=== PATIENT | female | born 1985 | race African-American/Black ===

== ENCOUNTER 2025-02-04 13:37 | Emergency (ER) | payer MEDICAID, SELFPAY ==
[2025-02-04 13:49] VITALS: BP 138/87; PULSE 84; RESP 18; TEMP 36.6; O2SAT 100
--- NOTE | 2025-02-04 13:54 | ED.EYEPROB ---
HPI - Eye Problem General Chief complaint: Eye Problems Stated complaint: Eyes Irritation Time Seen by Provider: 02/04/25 13:54 Source: patient and RN notes reviewed Mode of arrival: ambulatory Limitations: no limitations History of Present Illness HPI Narrative: 39-year-old female presents concern for right eye pain. Reports she slept in her contact lenses the next day she was having some pain, which she took her contact lens out the pain was worse. Reports she is light sensitive. She reports occasional blurry vision. Denies discharge. chief complaint: eye pain Related Data Allergies Allergy/AdvReac Type Severity Reaction Status Date / Time No Known Drug Allergies Allergy none Verified 02/04/25 13:53 Review of Systems Review of Systems: EYES: Denies visual changes. Reports right eye pain redness. Denies discharge. All systems reviewed & are unremarkable except as noted in HPI and below PMFSH Comments At time of signature, agree with nursing past medical, surgical, social and family history. There is no relevant family history pertinent to the presenting complaint Exam Narrative: GENERAL: Well-appearing, well-nourished, and in no acute distress. HEAD: Normocephalic, atraumatic. EYES: PERRLA and EOMI. No nystagmus. Right sclera and conjunctivae mildly injected. Upper and lower eyelid unremarkable, no periorbital edema noted ENT: Nares clear, turbinates pink, no rhinorrhea or epistaxis. Mucous membranes moist. NECK: Supple. CHEST: No respiratory distress. Speaks in full sentences. HEART: Regular rate and rhythm. SKIN: Warm, dry, no visible rash. NEURO: Alert and oriented x3. PSYCH: Normal mood and affect Course Course Emergency Course: Patient is aware of diagnosis, understands and agrees to treatment plan. Anticipatory guidance given. Patient agrees to follow-up as directed and is aware of reasons to seek care at the emergency department. Portions of this record may have been created with voice recognition software Level of Care: Express Care Visit Vital Signs Vital signs: Vital Signs Temperature 97.9 F 02/04/25 13:49 Pulse Rate 84 02/04/25 13:49 Respiratory Rate 18 02/04/25 13:49 Blood Pressure 138/87 02/04/25 13:49 Pulse Oximetry 100 02/04/25 13:49 Oxygen Delivery Room Air 02/04/25 13:49 Temperature 97.9 F 02/04/25 13:49 Pulse Rate 84 02/04/25 13:49 Respiratory Rate 18 02/04/25 13:49 Blood Pressure 138/87 02/04/25 13:49 Pulse Oximetry 100 02/04/25 13:49 Oxygen Delivery Room Air 02/04/25 13:49 Reviewed. MDM - Eye Problem MDM Narrative Medical decision making narrative: Consideration of the following conditions may be warranted for the presenting problem, they are not final diagnoses: Bacterial conjunctivitis, allergic conjunctivitis, viral conjunctivitis, foreign body, blepharitis, chalazion, hordeolum, corneal abrasion, preseptal cellulitis, orbital cellulitis. No evidence of proptosis, ophthalmoplegia, vision loss, pain with eye movement. Exam findings show no acute concerns or changes; patient is non-toxic appearing and is in no distress. Patient is appropriate for outpatient treatment and follow-up. Critical Care Time Critical Care Time Critical Care Time: No Discharge Plan Discharge Clinical Impression: Corneal abrasion Patient Disposition: Home Condition: Stable Instructions: Corneal Abrasion (ED) Additional Instructions: Corneal abrasions will heal in 1-2 days. Keep your eye shut and wear sunglasses or stay in low light to avoid light sensitivity. Do not touch or rub your eye or use a fabric patch You may take Tylenol or ibuprofen for pain Follow-up with PCP or campus administrator if condition is not improving in 2-3days. Patient Language: German Prescriptions: New polymyxin B sulf-trimethoprim 10,000 unit- 1 mg/mL drops 1 drp RIGHT EYE Q3H 7 Days Qty: 10 0RF Rx Instructions: while awake; do not exceed 6 doses in 24 hours Follow-up/Referrals: PHYSICIAN,RAILROAD TRACK REPAIR SUPERVISOR [Primary Care Provider, Internal Medicine] Time of Disposition: 14:15
[2025-02-04] MEDS: TETRACAINE HCL 0.5% OPHTH SOLN 4 ML BTL AFFCTD EYE (14:28)
[2025-02-04] MEDS: FLUORESCEIN SOD 1 MG/STRIP AFFCTD EYE (14:30)
[2025-02-04] MEDS: DACRIOSE EYE IRRIGATION 118 ML BOTTLE AFFCTD EYE (14:33)
== END 2025-02-04 14:34 | disposition home or self-care (01) ==
PROVIDERS: Emergency Provider Nurse Practitioner
DX: S05.01XA Injury of conjunctiva and corneal abrasion without foreign body, right eye, initial encounter (principal); X58.XXXA Exposure to other specified factors, initial encounter
CPT/HCPCS: 99203; A9270; G0463